=== PATIENT | male | born 2000 | race African-American/Black ===

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

== ENCOUNTER → 2019-12-15 | Outpatient (CLI) | payer BC ==
[~2019-12-15] MED LIST changes: +BENTYL 20MG20 MG/TAB PO; +CIPRO 500MG TA500 MG PO; +FLAGYL500 MG PO; +PRILOSEC 20MG20 MG PO; +PROMETHAZINE12.5 M5 PO
== END ==
LOC: ZCOL.LAB 21:46
DX: U07.1 COVID-19 (principal)

== ENCOUNTER 2020-05-26 00:48 | Emergency (ER) | payer BC ==
[~2020-05-26] VITALS: Ht 177.8 cm; Wt 68.2 kg
[2020-05-26 04:50] VITALS: BP 117/74; PULSE 86; TEMP 98.2
[2020-05-26 07:14] LABS: CREATININE, serum 0.71 (0.66-1.25)
[2020-05-26 07:15] LABS: BASO % 0.3 % (0.0-2.0); CALCIUM 8.8 mg/dL (8.4-10.2); EOS % 1.5 % (0-4.0); GRAN # 10.7 (1.4-6.5); GRAN % 74.8 % (42.2-75.2); HEMATOCRIT 44.6 % (42.0-52.0); HEMOGLOBIN 14.8 g/dl (13.5-18.0); LYMPH # 1.8 (1.2-3.4); LYMPH % 12.7 % (20.0-51.0); MEAN CELL VOLUME 94 fl (80.0-100.0); MEAN CORPUSCULAR HEMOGLOBIN 31 pg (27.0-31.0); MEAN CORPUSCULAR HGB CONC 33 g/dl (33.0-37.0); MEAN PLATELET VOLUME 9.4 fl (7.4-10.4); MONO # 1.5 (0.1-0.6); MONO % 10.3 % (1.7-9.3); PLATELET COUNT 261 K/mm3 (130-400); POTASSIUM 4.2 mmol/L (3.4-5.0); RED BLOOD COUNT 4.77 M/mm3 (4.20-5.60); REDCELL DISTRIBUTION WIDTH-CV 12.3 % (11.5-14.5)
[2020-05-26 07:16] LABS: EOS # 0.2 (0.0-0.7)
== END 2020-05-26 04:50 | disposition home or self-care (01) ==
LOC: COL.ER 00:48
PROVIDERS: Emergency Medicine
DX: J12.9 Viral pneumonia, unspecified (principal); J98.01 Acute bronchospasm; F17.290 Nicotine dependence, other tobacco product, uncomplicated; Z86.16 Personal history of COVID-19
CPT/HCPCS: J0696; J1885; J2930; J7030

== ENCOUNTER 2021-07-14 23:18 | Emergency (ER) | payer BC ==
[~2021-07-14] VITALS: Ht 177.8 cm; Wt 63.6 kg
[2021-07-14 23:21] VITALS: BP 126/89; TEMP 98
[2021-07-15 00:18] LABS: BASO % 0.1 % (0.0-2.0); EOS # 0.2 K/mm3 (0.0-0.7); EOS % 2.5 % (0.0-4.0); GRAN # 4.3 K/mm3 (1.4-6.5); GRAN % 54.5 % (42.2-75.2); HEMATOCRIT 45.5 % (42.0-52.0); HEMOGLOBIN 15.1 g/dl (13.5-18.0); LYMPH # 2.3 K/mm3 (1.2-3.4); LYMPH % 29.6 % (20.0-51.0); MEAN CELL VOLUME 93 fl (80.0-100.0); MEAN CORPUSCULAR HEMOGLOBIN 31 pg (27-31); MEAN CORPUSCULAR HGB CONC 33 g/dl (33.0-37.0); MEAN PLATELET VOLUME 9.5 fl (7.4-10.4); PLATELET COUNT 280 K/mm3 (130-400); RED BLOOD COUNT 4.88 M/mm3 (4.20-5.60); REDCELL DISTRIBUTION WIDTH-CV 11.8 % (11.5-14.5)
[2021-07-15 00:41] LABS: ALBUMIN 3.9 gm/dL (3.5-5.0); BILIRUBIN,TOTAL 0.7 mg/dL (0.2-1.2); CALCIUM 8.2 mg/dL (8.4-10.2); CREATININE, serum 0.84 mg/dL (0.72-1.25); POTASSIUM 4.1 mmol/L (3.5-4.5); TOTAL PROTEIN 6.9 gm/dL (6.2-8.1)
[2021-07-15] MEDS ORDERED: ZOFRAN ODT4 MG PO (01:08)
[2021-07-15 01:23] VITALS: PULSE 59
== END 2021-07-15 01:24 | disposition home or self-care (01) ==
LOC: COL.ER 23:18
PROVIDERS: Emergency Medicine Emergency Medical Services
DX: R11.2 Nausea with vomiting, unspecified (principal); R19.7 Diarrhea, unspecified
CPT/HCPCS: J2405; J7030

== ENCOUNTER 2021-08-03 17:51 | Emergency (ER) | payer BC ==
[~2021-08-03] VITALS: Ht 177.8 cm; Wt 63.2 kg
[2021-08-03 18:10] VITALS: TEMP 98
[2021-08-03 18:50] LABS: BASO % 0.4 % (0.0-2.0); EOS # 0.3 K/mm3 (0.0-0.7); EOS % 2.7 % (0.0-4.0); GRAN # 6.6 K/mm3 (1.4-6.5); GRAN % 66.2 % (42.2-75.2); HEMATOCRIT 44.5 % (42.0-52.0); HEMOGLOBIN 15.2 g/dl (13.5-18.0); LYMPH # 1.9 K/mm3 (1.2-3.4); LYMPH % 19.3 % (20.0-51.0); MEAN CELL VOLUME 92 fl (80.0-100.0); MEAN CORPUSCULAR HEMOGLOBIN 31 pg (27-31); MEAN CORPUSCULAR HGB CONC 34 g/dl (33.0-37.0); MEAN PLATELET VOLUME 9.4 fl (7.4-10.4); MONO # 1.1 K/mm3 (0.1-0.6); MONO % 11.2 % (1.7-9.3); PLATELET COUNT 313 K/mm3 (130-400); RED BLOOD COUNT 4.85 M/mm3 (4.20-5.60); REDCELL DISTRIBUTION WIDTH-CV 11.8 % (11.5-14.5)
[2021-08-03 19:05] LABS: ALANINE AMINOTRANSFERASE 13 U/L (0-55); ALBUMIN 4.2 gm/dL (3.5-5.0); ALKALINE PHOSPHATASE 46 U/L (40-150); ANION GAP 11 mmol/L (7-16); AST,SGOT 14 U/L (5-34); BILIRUBIN,TOTAL 0.5 mg/dL (0.2-1.2); BLOOD UREA NITROGEN 10 mg/dL (9-21); CALCIUM 9.1 mg/dL (8.4-10.2); CARBON DIOXIDE 24 mmol/L (22-29); CHLORIDE 107 mmol/L (98-107); CREATININE, serum 0.85 mg/dL (0.72-1.25); GLUCOSE 87 mg/dL (70-99); LIPASE 23 U/L (8-78); POTASSIUM 4.1 mmol/L (3.5-4.5); SODIUM 142 mmol/L (136-145); TOTAL PROTEIN 7.5 gm/dL (6.2-8.1)
[2021-08-03 19:11] LABS: TROPONIN-I < 0.010 ng/mL (0.00-0.033)
[2021-08-03 19:15] VITALS: BP 149/103
[2021-08-03 21:10] VITALS: PULSE 65
== END 2021-08-03 21:15 | disposition home or self-care (01) ==
LOC: COL.ER 17:51
PROVIDERS: Physician Assistant
DX: R07.89 Other chest pain (principal)
CPT/HCPCS: J1885